=== PATIENT | male | born 1980 | race Caucasian/White ===

== ENCOUNTER 2017-02-26 12:12 | Emergency (ER) | payer SELFPAY ==
[~2017-02-26 12:12] MED LIST: DIAZ2TAB PO; HYDR-2762 PO; OXYC-323 PO; SERT100T PO
[2017-02-26 12:15] VITALS: BP 124/75
--- NOTE | 2017-02-26 13:09 | RAD ---
Right hand, 3 views, 02/26/2017: History: Punched in the wall, pain There is a slightly comminuted fracture of the distal fifth metacarpal. There is mild volar and radial displacement and angulation of the major distal fracture fragment. There is also a tiny fracture fragment along the ulnar aspect of the fifth carpal-metacarpal joint, probably arising from the corner of the hamate bone. A lucency projected over the base of the fourth metacarpal on one view is probably due to an overlying soft tissue shadow. IMPRESSION: 1. Mildly displaced and angulated distal fifth metacarpal fracture. 2. Small cortical fracture which appears to arise from the hamate bone at the fifth CMC joint level.
--- NOTE | 2017-02-26 13:32 | PHYS DOC ---
Past Medical History Past Medical History: No Pertinent History Past Surgical History: Cholecystectomy, Other Additional Past Surgical Histo: right elbow Smokin Pack Per Day Alcohol Use: Heavy Drug Use: Heroin, Marijuana Adult General Chief Complaint Chief Complaint: HAND PROBLEM HPI HPI Patient is a 36 year old male who presents with right hand pain after punching a wall on 02/06/17. He reports that he was seen at Hospital in October and diagnosed with a fracture of the hand. He was placed in a splint. He took it off the next day to shower and lost the splint. He has subsequently moved to [place]. He denies any numbness or tingling in the hand. He does not have a PCP. He requests referral to an orthopedic doctor. Review of Systems Review of Systems Constitutional: Denies fever or chills. [] Musculoskeletal: Denies back pain or joint pain. Reports right hand pain. Integument: Denies rash or skin lesions. [] Neurologic: Denies focal weakness or sensory changes. [] Allergies Allergies Allergies Coded Allergies Type Severity Reaction Last Updated Verified Penicillins Allergy Unknown 11/30/13 Yes amoxicillin trihydrate Allergy Unknown 11/30/13 Yes Physical Exam Physical Exam Constitutional: Well developed, well nourished, no acute distress, non-toxic appearance. [] HENT: Normocephalic, atraumatic, oropharynx moist. [] Eyes: PERRLA, EOMI, conjunctiva normal, no discharge. [] Skin: Warm, dry, no erythema, no rash. [] Extremities: Right fifth metacarpal tenderness, ROM intact, minimal edema. 2+ radial and ulnar pulses. Less than 2 second capillary refill in the fingers distally. Light touch sensation intact distally. Neurologic: Alert and oriented X 3, normal motor function, normal sensory function, no focal deficits noted. [] Psychologic: Affect normal, judgement normal, mood normal. [] Current Patient Data Vital Signs Vital Signs Date Time Temp Pulse Resp B/P Pulse Ox O2 Delivery O2 Flow Rate FiO2 02/26/17 12:15 98.2 100 18 124/75 99 Room Air 98.2 EKG EKG [] Radiology/Procedures Radiology/Procedures REASON: punched wall on 02/06/17 PROCEDURE: HAND RIGHT 3V Right hand, 3 views, 02/26/2017: History: Punched in the wall, pain There is a slightly comminuted fracture of the distal fifth metacarpal. There is mild volar and radial displacement and angulation of the major distal fracture fragment. There is also a tiny fracture fragment along the ulnar aspect of the fifth carpal-metacarpal joint, probably arising from the corner of the hamate bone. A lucency projected over the base of the fourth metacarpal on one view is probably due to an overlying soft tissue shadow. IMPRESSION: 1. Mildly displaced and angulated distal fifth metacarpal fracture. 2. Small cortical fracture which appears to arise from the hamate bone at the fifth CMC joint level. Course & Med Decision Making Course & Med Decision Making Pertinent Labs and Imaging studies reviewed. (See chart for details) The patient was placed in an ulnar gutter Ortho-Glass splint by park maintenance technician. I examined the patient after splint placement. He remains neurovascularly intact without evidence of compartment syndrome. He is instructed to leave the splint on and keep it dry until he follows up with the orthopedic doctor. He is discharged with prescription for Ultram. Return precautions were discussed. He verbalizes understanding and agrees with plan. Dragon Disclaimer Dragon Disclaimer This electronic medical record was generated, in whole or in part, using a voice recognition dictation system. Departure Departure Impression: Primary Impression: Walter fracture Disposition: 01 HOME, SELF-CARE Condition: STABLE Referrals: CHRISTOPHER CRUM MD Patient Instructions: Boxhetal's Fracture Additional Instructions: You were placed in a splint for your broken hand. The splint must remain dry to keep it shape. Please leave the splint on and do not remove it until you follow up with the orthopedic doctor listed below. Please follow-up with the orthopedic doctor listed below as soon as possible. Call to schedule an appointment. Please take the prescribed pain medication as directed. Do not drive or operate heavy machinery while taking this medication. Return to the emergency department if you have any new or concerning symptoms. Scripts Tramadol Hcl (Ultram)50 Mg [id number] Mg PO Q6H PRN PAIN #20 TAB Prov:RUT GUARDADO 02/26/17 Problem Qualifiers Primary Impression: Boxjose ramon fracture Encounter type: subsequent encounter Fracture healing: with routine healing Qualified Code: S62.309D - Unspecified fracture of unspecified metacarpal bone, subsequent encounter for fracture with routine healing RUT GUARDADO Feb 26, 2017 13:32
[2017-02-26] MEDS ORDERED: TRAM-29 PO (14:28)
== END 2017-02-26 14:25 | disposition home or self-care (01) ==
LOC: ER 12:12
DX: S62.396A Other fracture of fifth metacarpal bone, right hand, initial encounter for closed fracture (principal); F12.10 Cannabis abuse, uncomplicated; F17.200 Nicotine dependence, unspecified, uncomplicated; Z90.49 Acquired absence of other specified parts of digestive tract; Z88.1 Allergy status to other antibiotic agents; Z88.0 Allergy status to penicillin; W22.01XA Walked into wall, initial encounter; Y93.89 Activity, other specified; Y92.89 Other specified places as the place of occurrence of the external cause; Y99.8 Other external cause status
CPT/HCPCS: 29125; 73130; 99284-25